=== PATIENT | female | born 1990 | race African-American/Black ===

== ENCOUNTER 2017-09-14 16:29 | Emergency (ER) | payer MEDICAID ==
[~2017-09-14] VITALS: Ht 170.2 cm; Wt 55.0 kg
[2017-09-14] MEDS ORDERED: PNV1TABL76 PO (16:39)
[2017-09-14] MEDS ORDERED: DOXY1TAB3 PO (16:39)
[2017-09-14 18:33] LABS: CLARITY URINE TURBID (CLEAR); COLOR URINE RED (YELLOW); GLUCOSE URINE NEGATIVE (NEGATIVE); KETONES URINE NEGATIVE (NEGATIVE); LEUKOCYTE ESTERASE URINE 2+ (NEGATIVE); NITRITE URINE POSITIVE (NEGATIVE); OCCULT BLOOD URINE 3+ (NEGATIVE); PH URINE >=9.0 (4.5-8.0); PROTEIN URINE 2+ (NEGATIVE); SPECIFIC GRAVITY URINE 1.025 (1.005-1.030)
[2017-09-14 19:54] LABS: BASOPHILS % 0.7 % (0.0-2.0); EOSINOPHILS % 3.6 % (0.0-5.0); HEMOGLOBIN. 12.6 g/dL (12.0-16.0); LYMPHOCYTES % 38.8 % (20.0-50.0); MEAN CORPUSCULAR HEMOGLOBIN 26.5 pg (28.0-32.0); MEAN PLATELET VOLUME 7.8 fl (7.4-10.4); MONOCYTES % 11.4 % (2.0-8.0); NEUTROPHILS % 45.5 % (40.0-76.0); PLATELET 265 x1000/uL (130-400); RED BLOOD CELL COUNT 4.76 mill/uL (4.2-5.4); RED CELL DISTRIBUTION WIDTH 12.8 % (11.6-14.6)
[2017-09-14 20:03] LABS: CARBON DIOXIDE 28 mEq/L (21-32); CHLORIDE 106 mEq/L (98-107)
[2017-09-14 20:07] LABS: B-HCG QUANTITATIVE 930 mIU/mL (<3)
[2017-09-14] MEDS ORDERED: METRONIDAZOLE 500MG TABLET PO ONE (22:15)
[2017-09-14 22:47] VITALS: BP 107/73
== END 2017-09-14 22:49 | disposition home or self-care (01) ==
LOC: ER 16:42
DX: O20.0 Threatened abortion (principal); Z3A.01 Less than 8 weeks gestation of pregnancy
CPT/HCPCS: 36415; 76801; 76817; 80048; 81001; 81025; 84702; 85025; 86850; 86900; 86901; 99285; Z7610

== ENCOUNTER 2017-09-16 16:27 | Emergency (ER) | payer MEDICAID ==
[~2017-09-16] VITALS: Ht 170.2 cm; Wt 54.0 kg
[~2017-09-16 16:27] MED LIST: DOXY1TAB3 PO; PNV1TABL76 PO
[2017-09-16 19:30] VITALS: BP 110/70
== END 2017-09-16 20:00 | disposition home or self-care (01) ==
LOC: ER 17:23
DX: O03.9 Complete or unspecified spontaneous abortion without complication (principal); R10.30 Lower abdominal pain, unspecified
CPT/HCPCS: 36415; 84702; 99283